=== PATIENT | female | born 2000 | race Caucasian/White ===

== ENCOUNTER 2025-03-03 22:31 | Emergency (ER) | payer BC, SELFPAY ==
--- OUTSIDE RECORDS SUMMARY | 2024-02-28 06:30 | XMS_ITS ---
Author Organization [facility] Address [address] [facility] [place] [address] Care Team Providers Care Cutting Machine Operator Name Role Phone Jen Youssef APRN Primary Care Provider Unavail able Tricia Stevens Unavailable [phone] Tevin Hermosillo Unavailable [phone] REASON FOR VISIT 2 w cysto w stent removal Encounters Encounter Location Date Provider Diagnosis Counts Include [facility] [address] [place] [address] [address] [place] [address] 02/28/2024 Tevin Hermosillo Plan Of Treatment No Information Progress Notes * Irvin HANNAHinDOB:2000 (24 yo F)Acc No.[id number]:02/28/2024 Patient: Bernarda Velasquez Provider: Veronica Hermosillo MD :2000 A ge:23 Y S ex:Female Date:02/28/2024 Address:[address], [id number] Pcp:Jen Youssef APRN Subjective: * Chief Complaints: * 2 w cysto w stent removal * Electronic signature of Nacho Hermosillo MD on 03/03/2025 at 10:38 PM CDT Sign off status: Pending * Provider: Veronica Hermosillo MD Date: Generated for Printi ng/Faxing/eTransmitting on: 10:38 PM CDT
--- OUTSIDE RECORDS SUMMARY | 2025-01-23 05:00 | XMS_ITS ---
Author Organization [facility] Address [address] [place] [address] Care Team Providers Care Hide Shaker Name Role Phone Jen Youssef APRN Primary Care Provider Unavail Tricia Meade Unavailable [phone] REASON FOR VISIT 6m f/u w kub, ua and pvr Encounters Encounter Location Date Provider Diagnosis [facility] [address] [place] [address] [address] [place] [address] 01/23/2025 Tricia Stevens Plan Of Treatment No Information Progress Notes * Irvin HANNAHinDOB:2000 (24 yo F)Acc No.[id number]:01/23/2025 Progress Notes Patient: Bernarda Velasquez Provider: STEWART Dias :2000 A ge:24 Y S ex:Female Date:01/23/2025 Address:[facility] [address], [id number] Pcp:Jen Youssef APRN Subjective: * Chief Complaints: * 6 m f/u w kub, ua and pvr Billing Information: * Procedure Codes: * Electronic signature of STEWART Bowers on 03/03/2025 at 10:38 PM CDT Sign off status: Pending * Provider: STEWART Dias Date: 0 01/23/2025 Generated for Joey rueda/Nhung/eTransmitting on: 1 10:38 PM CDT
--- OUTSIDE RECORDS SUMMARY | 2025-02-25 06:20 | XMS_ITS ---
Author Organization [facility] Address [address] [place] [address] Care Team Providers Care Supervisor Dried Yeast Name Role Phone Jen Youssef APRN Primary Care Provider Unavail able Tricia Stevens Unavailable [phone] REASON FOR VISIT 6m f/u w kub, ua and pvr Problems Problem Type SNOMED Code ICD Code Onset Dates Problem Status W/U Status Risk Notes Problem Calculus of ureter (65324129) Calculus of ureter (N20.1) Active confirmed Problem Evaluation of test results (procedure) (121226974) Encounter to discuss test results (Z71.2) Active confirmed Encounters Encounter Location Date Provider Diagnosis [facility] [address] [place] [address] [address] [place] [address] 02/25/2025 Tricia Stevens Plan Of Treatment No Information Progress Notes * Irvin HANNAHinDOB:2000 (24 yo F)Acc No.[id number]:02/25/2025 Progress Notes Patient: Bernarda Velasquez Provider: STEWART Dias :2000 A ge:24 Y S ex:Female Date:02/25/2025 Address:[address] [id number] Pcp:Jen Youssef APRN Subjective: * Chief Complaints: * 6 m f/u w kub, ua and pvr Billing Information: * Procedure Codes: * Electronic signature of STEWART Bowers on 03/03/2025 at 10:38 PM CDT Sign off status: Pending * Provider: STEWART Dias Date: 1 Generated for Joey rueda/Jorge Luis on: 1 10:38 PM CDT
[2025-03-03 22:36] VITALS: BP 124/78; PULSE 75; RESP 14; TEMP 36.6; O2SAT 100; BMI 23.3
--- OUTSIDE RECORDS SUMMARY | 2025-03-03 22:38 | XMS_ITS | Patient Health Record ---
Author Organization [facility] Address [address] [id number] Care Team Providers Care Clock And Watch Hands Dipper Name Role Phone Zeeshan Simmons Primary Care Provider [phone] Reason For Referral No Information Medications Medication SIG (Take, Route, Fr equency, Duration) Notes Start Date End Date Status Amitriptyline HCl 25 MG 1 tablet at bedt kinga Orally Once a day; Duration: 30 day(s) 10/03/2020 Active Social History Tobacco Use: Social History Observation Description Date Details (start date - stop date) Never Smoker NA - NA Sex Assigned At : Social History Observation Description Sex Assigned At Female - Question Answer Notes Did you have a drink containing alcohol in the p ast year? Yes How often did you have a dri nk containing alcohol in the past year? Never (0 points) How often did you have six o r more drinks on one occasion in the past year? Never (0 points) Points 0 Interpretation Negative OSORIO Drug Questionnaire Question Answer Notes Have you used drugs other th an those for medical reasons in the past 12 months? No Do you smoke for age 13 and up Question Answer Notes Are you a: never smoker Smokeless Tobacco Question Answer Notes Tobacco use other than smoking No Have you ever had an STD Question Answer Notes Have you ever had an STD No Prevention Strategies Discussed Other Diabetic Retinal Eye Exam Question Answer Notes Date of exam 08/02/2019 Problems Problem Type SNOMED Code ICD Code Onset Dates Problem Status W/U Status Risk Notes Problem migraine (disorder) (78051811) Migraines (G43.909) Active confirmed Plan Of Treatment No Information Insurance Providers Payer Name Payer Address Payer Phone Subscriber Number Group Number Insured Name Patient Relationship to Insured Coverage Start Date Coverage End Date [facility] [address] [place] [address] [id number] Bernarda Smith Self - patient is the insured Medications Administered Medication Instructions Date of Administration Dosage Notes Lidocaine 1% with Epinephrine 03/03/2020 2 mL Medical (General) History Surgical History Surgery Date(Month/Year)
--- OUTSIDE RECORDS SUMMARY | 2025-03-03 22:38 | XMS_ITS | Patient Health Record ---
Author Organization [facility] Address [address] [facility] [address] Care Team Providers Care Manager Scientific Name Role Phone Jen Youssef APRN Primary Care Provider Unavail able Tricia Stevens Unavailable Tevin Hermosillo Unavailable [phone] Allergies Allergen (clinical drug ingredient) Drug/Non Drug Allergy documented on EMR Reaction Allergy Type Onset Date Status sumatriptan Sumatriptan shortness of breath Drug Allergy Active Results Component Value Reference Range Notes Litholink--NO CPT Reviewed date:03/17/2024 07:01:26 PM Interpretation: Performing Lab: Notes/Report: Litholink Sent to Ref Lab PTH Intact 82507 Reviewed date:03/17/2024 07:01:47 PM Interpretation: Performing Lab: Notes/Report: Diagnosis Description: Calculus of kidney PTH Intact 77.5 18.4-88.0 pg/mL Performed on the Siemens Atellica Solution IM Abdomen AP-[id number] Reviewed date:02/21/2025 05:35:58 PM Interpretation: Performing Lab: Notes/Report: See Below For Report Abdomen AP Diagnosis Description: Calculus of kidney Read See Below For Report Abdomen AP-[id number] Reviewed date:02/21/2025 05:49:01 PM Interpretation: Performing Lab: Notes/Report: [id number]=iSite UA Without Micro-[place], [place] - [address] Reviewed date:07/19/2024 10:02:21 AM Interpretation: Performing Lab: Notes/Report: Glucose 0 Bili 0 Ketones 0 Sp [place] 1.025 Blood 1+ pH 6.0 Protein 0 Urobili 0 Nitrites 0 Leukocytes 1+ Abdomen AP-41558 Reviewed date:07/13/2024 09:43:50 AM Interpretation: Performing Lab: Notes/Report: See Below For Report Abdomen AP Diagnosis Description: Calculus of kidney Read See Below For Report PTH Intact 65392 Reviewed date:07/22/2024 07:47:47 AM Interpretation: Performing Lab: Notes/Report: Diagnosis Description: Calculus of kidney PTH Intact 37.6 18.4-88.0 pg/mL Performed on the Photos to Photos Solution IM US Renal w/bladder-39766 Reviewed date:03/12/2024 04:24:01 PM Interpretation: Performing Lab: Notes/Report: hxi=[id number]=iSite US Renal w/bladder-93990 Reviewed date:03/16/2024 09:19:57 PM Interpretation: Performing Lab: Notes/Report: See Below For Report US Renal w/bladder Read See Below For Report UA Without Micro-Auto, [place] - [address] Reviewed date:04/18/2024 03:25:30 PM Interpretation: Performing Lab: Notes/Report: Glucose 0 Bili 0 Ketones 0 Sp [place] 1.015 Blood 0 pH 0 Protein 0 Urobili 0 Nitrites 0 Leukocytes 0 Abdomen AP-51223 Reviewed date:07/13/2024 09:44:26 AM Interpretation: Performing Lab: Notes/Report: uwv=[id number]=iSite Reason For Referral No Information Medications Medication SIG (Take, Route, Frequency, Duration) Notes Start Date End Date Status Prazosin HCl 1 MG Capsule Take 1-2 capsules by mouth at night as needed for nightmares Oral; Duration: 30 Days Active {21 (Ethinyl Estradiol 0.035 MG / norgestimate 0.25 MG Oral Tablet) / 7 (Inert Ingredients 1 MG Oral Tablet) } Pack [Sprintec 28 Day] {21 (Ethinyl Estradiol 0.035 MG / norgestimate 0.25 MG Oral Tablet) / 7 (Inert Ingredients 1 MG Oral Tablet) } Pack [Sprintec 28 Day] 08/25/2015 Not-Taking lamoTRIgine 25 MG Tablet TAKE 1 TABLET EVERY DAY FOR 7 DAYS; THEN TAKE 1 TABLET TWICE DAILY FOR 7 DAYS; THEN TAKE 2 TABLETS TWICE DAILY FOR 7 DAYS Oral; Duration: 21 Days Active Amitriptyline HCl No t-Taking Amoxicillin 500 MG Capsule 1 capsule Orally 4 times daily; Duration: 7 days Not-Taking Immunizations Vaccine Route Administration Date Status Comme nts DTaP-Hib Unknown 1999 Administered DTaP-Hib Unknown 1999 Administered DTaP-Hib Unknown 1999 Administered DTaP-Hib Unknown 07/29/2000 Administered DTaP-Hib Unknown 06/11/2003 Administered Hep B, adolescent or pediatr ic (11-19), 3 dose schedule Unknown 1999 Administered Hep B, adolescent or pediatr ic (11-19), 3 dose schedule Unknown 1999 Administered Hep B, adolescent or pediatr ic (11-19), 3 dose schedule Unknown 1999 Administered Hib (PRP-T), 4 dose schedule , ActHIB Unknown 1999 Administered Hib (PRP-T), 4 dose schedule , ActHIB Unknown 1999 Administered Hib (PRP-T), 4 dose schedule , ActHIB Unknown 1999 Administered Hib (PRP-T), 4 dose schedule , ActHIB Unknown 05/26/2000 Administered Influenza (split), seasonal, intradermal, preservative free Unknown 02/19/2019 Administered IPV Unknown 1999 Administered IPV Unknown 1999 Administered IPV Unknown 07/29/2000 Administered IPV Unknown 06/11/2003 Administered MMR Unknown 05/26/2000 Administered MMR Unknown 06/11/2003 Administered Tdap Unknown 11/15/2011 Administered Varicella (Varicella-Zoster/ Chicken Pox) Unknown 05/26/2000 Administered Varicella (Varicella-Zoster/ Chicken Pox) Unknown 12/20/2013 Administered Social History Tobacco Use: Social History Observation Description Date Details (start date - stop date) Former Smoker NA - NA Social History Depression Screening Social Info Question Answer Notes PHQ-9 Little interest or pleasure in doing thin gs Several days Feeling down, depressed, or hopeless Several day s Trouble falling or staying a sleep, or sleeping too much Several days Feeling tired or having little energy Several da ys Poor appetite or overeating Not at all Feeling bad about yourself, or that you are a failure, or have let yourself or your family down Several days Trouble concentrating on thi ngs, such as reading the newspaper or watching television Several days Moving or speaking so slowly that other people could have noticed. Or the opposite ? being so fidgety or restless that you have been moving around a lot more than usual Not at all Thoughts that you would be b ramila off , or of hurting yourself in some way Several days (Consider Suicide Assessment Risk) Total Score 7 Interpretation Mild Depression Drugs/Alcohol: Social Info Question Answer Notes Alcohol Screen (Audit-C) Did you have a drink containing alcohol in the past year? No Points 0 Interpretation Negative Drugs Have you used drugs other than those for medical reasons in the past 12 months? No Tobacco Use: Social Info Question Answer Notes xTobacco Use/Smoking Are you a former smoker How long has it been since you last smoked? 1-5 years Additional Details Category Social Info Options Details zzMigrated Social History Migrated Social History Smoking Status:Never smoked tobacco (finding) Section Notes: Alcohol- only on special occasions Caffeine- very little Alcohol- only on special occasions Caffeine- very little Alcohol- only on special occasions Caffeine- very little Alcohol- only on special occasions Caffeine- very little Problems Problem Type SNOMED Code ICD Code Onset Dates Problem Status W/U Status Risk Notes Problem Calculus of ureter (83944838) Calculus of ureter (N20.1) Active confirmed Problem Primigravida (215713167) Encounter for supervision of normal first , second trimester (Z34.02) Active confirmed Problem Chronic cystitis (87114323) Chronic cystitis (N30.20) Active confirmed Problem Nephrolithiasis (97467358) Nephrolithiasis (N20.0) Active confirmed Problem Second trimester (09870889) Encounter for supervision of other normal in second trimester (Z34.82) Active confirmed Problem Laboratory test result abnormal (252815202) Abnormal laboratory test result (R89.9) Active confirmed Problem Microscopic hematuria (316713796) Microhematuria (R31.29) Active confirmed Problem History of insertion of stent into ureter (situation) (007872424) S/P ureteral stent placement (Z96.0) Active confirmed Problem Kidney stone (81610331) Kidney stone (N20.0) Active confirmed Problem Foul smelling urine (920019312) Foul smelling urine (R82.90) Active confirmed Problem Evaluation of test results (procedure) (748245214) Encounter to discuss test results (Z71.2) Active confirmed Problem Chronic cystitis (disorder) (65694333) Chronic cystitis without hematuria (N30.20) Active confirmed Problem Primigravida (063481110) Encounter for supervision of normal first in first trimester (Z34.01) Active confirmed Problem Third trimester (68491258) Encounter for supervision of other normal in third trimester (Z34.83) Active confirmed Problem Normal (31983008) Normal in first trimester (Z34.91) Active confirmed Problem Ureteral stent present (Z96.0) Active confirmed Vital Signs Heart Rate 68 /min 07/19/2024 Temperature 98.0 degrees Fahrenheit 07/19/2024 Height-cm 162.56 cm 07/19/2024 Blood pressure diastolic 74 mm Hg 07/19/2024 Weight-kg 61.42 kg 07/19/2024 Height 64 in 07/19/2024 Blood pressure systolic 102 mm Hg 07/19/2024 Weight 135.4 lbs 07/19/2024 BMI 23.24 kg/m2 07/19/2024 Procedures Procedure Date Ordered Date Performed Result Body Sit e PVR (Post Void Residual) 07/19/2024 07/19/2024 N/A Encounters Encounter Location Date Provider Diagnosis [facility] [address] [place] [address] 03/12/2024 [facility] [address] [place] [address] [place] [address] 04/18/2024 Tricia Stevens Chronic cystitis without hematuria N30.20 ; Nephrolithiasis N20.0 and Foul smelling urine R82.90 [facility] [address] [place] [address] [place] [address] 07/19/2024 Tricia Stevens Kidney stone N20.0 ; Chronic cystitis without hematuria N30.20 and Microhematuria R31.29 [facility] [address] [place] [address] [place] [address] 03/08/2024 [facility] [address] [place] [address] 04/17/2024 [facility] [address] [place] [address] [place] [address] 04/18/2024 Tevin Hermosillo Kidney stone N20.0 [facility] [address] [place] [address] 04/18/2024 Tricia Stevens [facility] [address] [place] [address] 04/23/2024 Tevin Hermosillo [facility] [address] [place] [address] 04/24/2024 Tevin [facility] [address] [place] [address] 07/19/2024 Tevin Hermosillo Kidney stone N20.0 [facility] [address] [place] [address] 10/16/2024 Tevin Hremosillo [facility] [address] [place] [address] 01/22/2025 Tevin Hermosillo Assessments Encounter Date Diagnosis (ICD Code) Assessment Notes Treatment Notes Treatment Clinical Notes Section Notes 07/19/2024 Kidney stone (ICD-10 - N20.0) 04/18/2024 Chronic cystitis without hematuria (ICD-10 - N30.20) 07/19/2024 Kidney stone (ICD-10 - N20.0) PLAN - PATIENT TO HAVE KUB, CBC, CMP, UA AND FOLLOW UP WITH PROVIDER IN 6 MONTHS. IF YOU HAVE CHILLS, FEVER, FLANK PAIN, BLOOD IN URINE, NAUSEA, VOMITING, PLEASE SEEK EMERGENT CARE. 07/19/2024 Chronic cystitis without hematuria (ICD-10 - N30.20) PLAN - PATIENT WILL CONTACT OFFICE AND ARRANGE FOR NURSE VISIT IF SHE BELIEVE SHE IS ACQUIRING A UTI, WE CAN OBTAIN A SAMPLE AND PROVIDE HER WITH TREATMENT. 04/18/2024 Kidney stone (ICD-10 - N20.0) 04/18/2024 Nephrolithiasis (ICD-10 - N20.0) 04/18/2024 Foul smelling urine (ICD-10 - R82.90) 07/19/2024 Microhematuria (ICD-10 - R31.29) Patient will notify office if she has any ligia bleeding 07/19/2024 Other PATIENT TO FOLLOW UP IN 6 MONTHS WITH KUB, UA, PVR Plan Of Treatment Pending Test Test Name Order Date Basic Metabolic Panel (BMP) 01223 2023 Comprehensive Metabolic Panel (CMP) 8005 3 07/07/2022 Hemoglobin 47003 07/09/2022 Uric Acid (U) 24 hr 90666 02/22/2024 CBC Reflex Man Diff 83417, 32478 023 PTH Intact 08881 04/18/2024 PTH Intact 49394 02/22/2024 GTT 3 H--45646 05/13/2022 Insurance Providers Payer Name Payer Address Payer Phone Subscriber Number Group Number Insured Name Patient Relationship to Insured Coverage Start Date Coverage End Date [employer] [address] [place] [address] [id number] Bernarda Weiss Self - patient is the insured Medical (General) History Medical History History ICD Code Problem:Pain in elbow (finding) , Status :: Active Problem:Patient encounter status (leslie anderson) , Status :: Active kidney stones migraine headaches Surgical History Surgery Date(Month/Year) Ureteral stent placement Gallbladder 02/2023 wisdom teeth Stone Manipulation Hospitalization History Reason Date(Month/Year) see surgical history
--- OUTSIDE RECORDS SUMMARY | 2025-03-03 22:38 | XMS_ITS | Data Portability ---
Author Organization [facility], [facility] Address [address] [place] [address] Assessment No assessment recorded. Plan of Treatment Reminders Order Date Submit Date Provider Last Modified By Organization Details Last Modified Time Details Appointments None recorded. Lab None recorded. Referral None recorded. Procedures None recorded. Surgeries None recorded. Imaging None recorded. Medication Orders paroxetine 30 mg tablet 2023 024 [facility], [address] [place], [address], 4 16:48:06 trazodone 50 mg tablet 2023 024 [facility], [address] [place], [address], 4 16:48:05 paroxetine 20 mg tablet 2023 024 [facility], [address] [place], [address], 4 16:55:30 trazodone 50 mg tablet 2023 024 [facility], [address] [place], [address], 4 16:55:29 Patient TargetsNo targets recorded. Patient InstructionsNo instructions recorded. Reason for Referral None Reported. Procedures Surgical History Date Name Laterality Status Provider Name and Address Organization Details Recorded Time 3 procedure on gallbladder completed Lisseth Pelaez 07/27/2023 15:31:07 Imaging Results None recorded. Procedure Notes None recorded. Medical Equipment None Reported. Allergies Allergen ID Allergen Name Allergen Category Reaction Reaction Severity Criticality Documentation Date Start Date Code Code System Note Provider Name and Address Organization Details Recorded Time sumatript an medicatio n Not available Not available Not available 07/27/2023 46657 RxNorm Lisseth mccullough [facility] serrato Pierce Rosalesner 4 15:26:15 Medications Name Sig Start Date Stop Date Status Note LastModified by Organization Details LastModified Time paroxetine 10 mg tablet TAKE 1 TABLET BY MOUTH DAILY active Not Available Not Available No t Available trazodone 50 mg tablet Take 2 tablets every day by oral route at bedtime for 30 days. active Not Available Not Available No t Available fluconazole 150 mg tablet Take 1 tablet by mouth daily if develops yeast infection active Not Available Not Available No t Available prazosin 1 mg capsule Take 1-2 capsules by mouth at night as needed for nightmare s active Not Available Not Available No t Available sucralfate 1 gram tablet TAKE 1 TABLET BY MOUTH BEFORE MEALS AND AT bedtime 07/26 completed Not Available Not Available Not Available sertraline 100 mg tablet Take 1 tablet by mouth once a day. 07/26 completed Not Available Not Available Not Available clindamycin HCl 150 mg capsule Take 1 capsule by mouth four times a day x 10 days 07/26 completed Not Available Not Available Not Available metronidazo le 500 mg tablet TAKE 1 TABLET BY MOUTH TWICE DAILY active Not Available Not Available No t Available ciprofloxac in 500 mg tablet TAKE 1 TABLET BY MOUTH TWICE DAILY FOR THREE DAYS active Not Available Not Available No t Available famotidine 20 mg tablet TAKE 1 TABLET BY MOUTH ONCE A DAY 07/26 completed Not Available Not Available Not Available amitriptyli ne 25 mg tablet Take 1 tablet by mouth at bedtime as needed for sleep. 07/26 completed Not Available Not Available Not Available hydrocodone 7.5 mg-acetamin ophen 325 mg tablet TAKE 1 TABLET EVERY 6 HOURS NEEDED FOR PAIN 07/26 completed Not Available Not Available Not Available paroxetine 30 mg tablet TAKE 1 TABLET BY MOUTH EVERY DAY active Not Available Not Available No t Available paroxetine 20 mg tablet Take 1 tablet every day by oral route for 30 days. active Not Available Not Available No t Available hydroxyzine HCl 25 mg tablet TAKE 1/2-2 tablets BY MOUTH AT bedtime as needed FOR SLEEP 07/26 completed Not Available Not Available Not Available cefuroxime axetil 500 mg tablet TAKE 1 TABLET TWICE DAILY 07/26 completed Not Available Not Available Not Available methylpredn isolone 4 mg tablets in a dose pack Take all of each days pills by mouth with breakfast . 07/26 completed Not Available Not Available Not Available norethindro ne (contracept vasiliy) 0.35 mg tablet TAKE 1 TABLET EVERY DAY 07/26 completed Not Available Not Available Not Available cefdinir 300 mg capsule TAKE 1 CAPSULE EVERY 12 HOURS active Not Available Not Available No t Available sertraline 50 mg tablet TAKE 1 TABLET BY MOUTH ONCE A DAY 07/26 completed Not Available Not Available Not Available aripiprazol e 2 mg tablet TAKE 1 TABLET BY MOUTH ONCE A DAY 07/26 completed Not Available Not Available Not Available Lo Loestrin Fe 1 mg-10 mcg (24)/10 mcg (2) tablet TAKE 1 TABLET BY MOUTH EVERY DAY 07/26 completed Not Available Not Available Not Available Zafemy 150 mcg-35 mcg/24 hr transdermal patch Apply 1 PATCH ONCE WEEKLY FOR THREE WEEKS 07/26 completed Not Available Not Available Not Available Vitals Date Recorded Body weight Body mass index (BMI) Body height Body temperature Heart rate Oxygen saturation Oxygen saturation in Arterial blood by Pulse oximetry Systolic And Diastolic Provider Name and Address Organization Details Last Updated DateTime 4 73772.0 7 g 30.8 kg/m2 160.02 cm 97.3 [degF] 85 /min 99 % 99 % 110/74 mm[Hg] Lisseth Pelaez 4 15:33:46 Date Recorded Body height Body mass index (BMI) Body weight Body temperature Heart rate Oxygen saturation Oxygen saturation in Arterial blood by Pulse oximetry Systolic And Diastolic Provider Name and Address Organization Details Last Updated DateTime 4 160.02 cm 29.4 kg/m2 93536.3 3 g 96.9 [degF] 66 /min 98 % 98 % 101/71 mm[Hg] Kira Pelaez 4 10:32:57 Social History Question Answer Notes LastModified by Organizat ion Details LastModified Time Tobacco Smoking Status Never Smoker Kira Peewee serrato, [facility] [place] Rosalesner 08/24/2023 10:32:26 What Was The Date Of Your Most Recent Tobacco Screening? 08/24/2023 Information not available 08/24/2023 Sex: Unknown Functional Status Question Answer Note LastModified by Organizat ion Details LastModified Time Do you use any illicit or recreational drugs? No Information not available 08/24/2023 Do you or have you ever used any other forms of tobacco or nicotine? No Information not available 08/24/2023 Mental Status None recorded. Family History Relationship Description Onset Age of this Age Resolved Age Notes LastModified by Organization Details LastModified Time Father No current problems or disability [email or web address] Not available 07/26 15:30:01 Mother No current problems or disability [email or web address] Not available 07/26 15:30:01 Medical History No medical history recorded. Gynecological HistoryNo gynecological history recorded. Obstetrics History GPAL:G 0 P 0 0 0 0 Past Encounters Encounter ID Performer Location Encounter Start Date Encounter Closed Date Diagnosis/Indication Diagnosis SNOMED-CT Code Diagnosis ICD10 Code Diagnosis IMO Codes Diagnosis Note [id number] [facility] [address] [place] [phone] 07/27/2023 15:19:13 07/27/2023 15:58:11 Bipolar disorder 04616845 F31.9 begin using as directed, f/u in one month [id number] [facility] [address] [place] [phone] 1 08/24/2023 10:12:14 08/25/2023 15:11:44 Bipolar disorder 92794921 F31.9 will increase to paxil 30. Insomnia 627605165 G47.0 0 use as directed Health Concerns Section Related Observation LastModified by Organization Detai ls LastModified Time None Recorded Concern Status LastModified by Organization Details LastModified Time None Recorded Advance Directives Directive None Recorded Payers Insurance Date Sequence Insurance Name Policy Number Policy Guerra Covered Member ID Guerra Member ID Guarantor Name 11/20/2023 1 [employer] [address] [place] [address] Bernarda Smith [id number] Bernarda Smith Notes Date Note Type Note Provider Name and Address Organization Details Recorded Time 07/27/2023 text/html Anxiety/Depressi onRepor rowan by PatientHPIFor associated symptoms, patient reportsanxiety,hypersen sitivity,depression,ins omnia,restlessness/agit ation,despair/hopelessn ess,social withdrawal, anddecreased effectiveness/productiv itybut reportsdenies homicidal ideations,no significant weight gain,no significant weight loss,no visual/auditory hallucinations,no delusions,no shortness of breath,mood good,no crying spells,no panic,no isolation,appetite good,no apathy, andmaintaining functionality. For severity, patient reportsdenies suicidal ideations,able to maintain relationships, anddoes not interfere with activities of daily living. For context, patient reportsno major life stressors. For modifying factors, patient reportsmedications as directed. new pt. pt states she stopped taking her depression/anxiety medication in may and she would like to try something different.pt has taken zoloft, amitripyline, abilify and hydroxyzine 25.pt states she was dx with bipolar disorder three years ago.no motivation, anxiety and melancholy CRISTINE Armenta [address] [place], [address], [place] - Pierce Pelaez 07/27/2023 15:52:56 08/24/2023 text/html Anxiety/Depressi onRepor rowan by PatientHPIFor associated symptoms, patient reportsanxiety,hypersen sitivity,depression,ins omnia,restlessness/agit ation,despair/hopelessn ess,social withdrawal, anddecreased effectiveness/productiv itybut reportsdenies homicidal ideations,no significant weight gain,no significant weight loss,no visual/auditory hallucinations,no delusions,no shortness of breath,mood good,no crying spells,no panic,no isolation,appetite good,no apathy, andmaintaining functionality. For severity, patient reportsdenies suicidal ideations,able to maintain relationships, anddoes not interfere with activities of daily living. For context, patient reportsno major life stressors. For modifying factors, patient reportsmedications as directed. Patient is here for a one month check up. Patient states that the medication is helping some but not enough. DARWIN ArmentaUP [address] [place], [address], [facility]z 08/24/2023 10:55:22 OBGyn Episode No OBEpisode recorded.
--- OUTSIDE RECORDS SUMMARY | 2025-03-03 22:38 | XMS_ITS | Patient Health Record ---
Author Organization [place] [facility], [facility] Address [address] [facility] [place] [address] Care Team Providers Care Family Medicine Chair Name Role Phone MikaelJen garrett Primary Care Provider Unavailabl e Allergies No Known Allergies Reason For Referral No Information Medications Medication SIG (Take, Route, Frequency, Duration) Notes Start Date End Date Status Pepcid 20 MG 1 tablet Orally Twice per day; Duration: 30 day(s) Active Amoxicillin 500 MG 1 capsule Orally 4 times daily; Duration: 7 days Not-Taking PNV *Reorder from [facility] for eRx and Interaction Alerts* Active {21 (Ethinyl Estradiol 0.035 MG / norgestimate 0.25 MG Oral Tablet) / 7 (Inert Ingredients 1 MG Oral Tablet) } Pack [Sprintec 28 Day] {21 (Ethinyl Estradiol 0.035 MG / norgestimate 0.25 MG Oral Tablet) / 7 (Inert Ingredients 1 MG Oral Tablet) } Pack [Sprintec 28 Day] *Reorder from [facility] for eRx and Interaction Alerts* 08/25/2015 Not-Taking Amitriptyline HCl *Pick strength-form from [facility] for eRX* Not-Taking Immunizations Vaccine Route Administration Date Status Comme nts DTaP-Hib Unknown 1999 Administered DTaP-Hib Unknown 1999 Administered DTaP-Hib Unknown 1999 Administered DTaP-Hib Unknown 07/29/2000 Administered DTaP-Hib Unknown 06/11/2003 Administered Hep B, adolescent or pediatric (11-19), 3 dose schedule Unknown 1999 Administered Hep B, adolescent or pediatric (11-19), 3 dose schedule Unknown 1999 Administered Hep B, adolescent or pediatric (11-19), 3 dose schedule Unknown 1999 Administered Hib (PRP-T), 4 dose schedule Unknown 1999 Administered Hib (PRP-T), 4 dose schedule Unknown 1999 Administered Hib (PRP-T), 4 dose schedule Unknown 1999 Administered Hib (PRP-T), 4 dose schedule Unknown 05/26/2000 Administered Influenza (split), seasonal, intradermal, preservative free Unknown 02/19/2019 Administered Immunization G iven by from source eCW:: IPV Unknown 1999 Administered IPV Unknown 1999 Administered IPV Unknown 07/29/2000 Administered IPV Unknown 06/11/2003 Administered MMR Unknown 05/26/2000 Administered MMR Unknown 06/11/2003 Administered Tdap Unknown 11/15/2011 Administered Varicella (Varicella-Zoster/Chic margy Pox Unknown 05/26/2000 Administered Varicella (Varicella-Zoster/Chic margy Pox Unknown 12/20/2013 Administered Problems Problem Type SNOMED Code ICD Code Onset Dates Problem Status W/U Status Risk Notes Problem Primigravida (676738143) Encounter for supervision of normal first , second trimester (Z34.02) Active confirmed Problem Normal (58747648) Normal in first trimester (Z34.91) Active confirmed Problem Second trimester (33242594) Encounter for supervision of other normal in second trimester (Z34.82) Active confirmed Problem Primigravida (980012206) Encounter for supervision of normal first in first trimester (Z34.01) Active confirmed Problem Laboratory test result abnormal (295115816) Abnormal laboratory test result (R89.9) Active confirmed Problem Third trimester (61664593) Encounter for supervision of other normal in third trimester (Z34.83) Active confirmed Problem Kidney stone (99106031) Kidney stone (N20.0) Active confirmed Plan Of Treatment Pending Test Test Name Order Date Comprehensive Metabolic Panel 19555 0 05/2022 Hemoglobin 49177 07/09/2022 CBC Reflex Man Diff 44782, 05130 023 GTT 3 H--01091 05/13/2022 Insurance Providers Payer Name Payer Address Payer Phone Subscriber Number Group Number Insured Name Patient Relationship to Insured Coverage Start Date Coverage End Date [employer] [address] [place], [place] [id number] Bernarda Weiss Self - patient is the insured Medical (General) History Medical History History ICD Code Problem:Pain in elbow (finding) , Status :: Active Problem:Patient encounter status (leslie anderson) , Status :: Active kidney stones migraine headaches Surgical History Surgery Date(Month/Year) wisdom teeth Hospitalization History Reason Date(Month/Year) see surgical history
[2025-03-03 22:43] VITALS: BP 123/83; PULSE 74; O2SAT 100
[2025-03-03 23:50] LABS: Hematocrit 37.4 % (36-47); Hemoglobin 12.30 g/dL (11.27-16.99); Mean Corpuscular HGB Conc 32.9 g/dL (30-55); Mean Corpuscular Hemoglobin 29.9 pg (27-33); Mean Corpuscular Volume 91.0 fl (85-98); Nucleated Red Blood Cells % 0 %; Platelet Count 227 10^3/cmm (157-399); Red Blood Count 4.11 10^6/uL (3.85-5.65); White Blood Count 8.75 10^3/uL (3.29-11.43)
[2025-03-04 00:05] LABS: HCG, Serum Qual Negative (Negative)
[2025-03-04 00:11] LABS: Alanine Aminotransferase 7 U/L (0-33); Albumin Level 4.4 g/dL (3.5-5.2); Alkaline Phosphatase 58 U/L (35-105); Anion Gap 14.9 (5-19); Aspartate Amino Transferase 11 U/L (0-32); Blood Urea Nitrogen 12 mg/dL (6-20); Calcium 9.1 mg/dL (8.5-10.5); Carbon Dioxide 24 mmol/L (22-29); Chloride 101 mmol/L (98-107); Creatinine Clr Calc Pharmacy 130.0971; Globulin 2.6 g/dL (1.3-4.6); Glucose 84 mg/dL (65-115); Lipase 27 U/L (13-60); Osmolality Calculated 281 mOsm/kg (285-295); Potassium 3.9 mmol/L (3.5-5.1); Sodium 136 mmol/L (136-145); Total Protein 7.0 g/dL (6.6-8.7)
--- NOTE | 2025-03-04 00:17 | ED_ITS ---
HPI - Abdominal Pain 2 General: Chief Complaint: Abdominal Pain Stated Complaint: Severe abd pain Time Seen by Provider: 03/03/25 23:59 History of Present Illness: Patient is a 24-year-old female who presents with abdominal pain that began today at approximately 4:00 PM. She describes the pain as located in the middle of her umbilicus extending to her right flank. The patient reports associated nausea but denies vomiting, fever, or diarrhea. She also denies significant dysuria. The patient states that the pain feels similar to a previous kidney blockage she experienced in the past. She has not taken any medications for symptom relief prior to presentation. Of note, patient has a history of cholecystectomy and is confirmed not to be . Related Data Date of Last Menstrual Period: 01/22/25 Previous Rx's ?Medication ?Instructions ?Recorded cefdinir 300 mg capsule 300 mg PO BID #14 caps 03/04 hydrocodone 5 mg-acetaminophen 325 1 tab PO Q8H PRN pa in #7 tabs 03/04/25 mg tablet ondansetron 4 mg disintegrating 4 mg PO Q6H PRN nausea and 03/04/25 tablet vomiting #14 tabs Allergies Allergy/AdvReac Type Severity Reaction Status Date / Time sumatriptan Allergy ALGY-Anaphy Verified 03/03/25 22:41 laxis Review of Systems 2 Narrative: Constitutional: Denies fever Gastrointestinal: Reports abdominal pain and nausea. Denies vomiting and diarrhea Genitourinary: Denies significant dysuria. Denies vaginal bleeding or discharge All other systems: Not assessed or documented in this encounter [facility] ED 2 Female Reproductive History: Date of last menstrual period: 01/22/25 Physical Exam 2 Const: COMMON NORMALS: no acute distress GENERAL APPEARANCE: cooperative; not frail appearing HENMT: COMMON NORMALS: normocephalic, atraumatic and Normal external nose present HEAD & SCALP: normocephalic and atraumatic FACE & SINUS: normal facial exam and face symmetric NOSE: Normal external nose present Eye: COMMON NORMALS: Equal, round and reactive pupils present and EOMs intact bilaterally PUPIL: Yes Equal, round and reactive pupils present Neck/C-Spine: GENERAL: Yes trachea midline Chest: CHEST: Yes Symmetrical chest wall rise Resp: COMMON NORMALS: normal respiratory effort, No retractions, No use of accessory muscles and clear to auscultation bilaterally AUSCULTATION: clear to auscultation bilaterally Cardio: COMMON NORMALS: regular rate and regular rhythm RATE: regular rate RHYTHM: regular rhythm GI: COMMON NORMALS: Normal to inspection, nondistended, normoactive bowel sounds present PALPATION: Yes Tenderness to palpation present (GI) Details: RLQ : BLADDER/KIDNEY EXAM: Yes CVA tenderness on the right Back/Pelvis: GENERAL BACK: Yes CVA tenderness Extremity: COMMON NORMALS: no pedal edema Neuro: JUDY COMA SCALE: document GCS findings [place] coma scale eye opening: Spontaneous [place] coma scale verbal response: Orientated [place] coma scale motor response: Obey commands [place] coma scale total score: 15 S ENSORY EXAM: Yes extremities (intact) Psych: COMMON NORMALS: speech normal SPEECH: Yes normal speech Skin: COMMON NORMALS: no rashes or lesions noted GENERAL SKIN EXAM: no rashes or lesions noted Course 2 Vital Signs: Vital signs: Vital Signs Temperature 97.8 F 03/03/25 22:36 Pulse Rate 74 03/04/25 00:38 Respiratory Rate 18 03/04/25 00:36 Blood Pressure 117/77 03/04/25 01:22 Pulse Oximetry 100 03/04/25 01:22 Oxygen Delivery Me thod Room Air 03/04/25 01:22 MDM - Abdominal Pain Medical Decision Making Right flank pain in a 24-year-old female. Vitals are normal. She is afebrile. CBC is normal. BMP is normal. She does have a nitrate +1+ leukocyte esterase 21-50 white blood cell count urine with 3+ bacteria. CT reveals perinephric edema on the right likely related to pyelonephritis. She does not have an obstructing stone. She does have some constipation. She will be treated with antibiotics. She got IV Rocephin and fluid here. Symptomatic treatment otherwise. Return for worsening symptoms despite treatment. Stable for discharge. Lab Data 03/03/25 23:44 03/03/25 23:44 Labs/Radiology: Radiology Impressions Abdomen/Pelvis CT 03/04/25 00:21 IMPRESSION: 1. Minimal right perinephric edema, please correlate for pyelonephritis. 2. Spleen enlarged at 13 cm. 3. Right kidney punctate nonobstructing renal caliceal stone. 4. 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 5. Cholecystectomy. 6. Moderate constipation. 7. Prominent fluid in the small bowel without dilation may reflect an enteritis. 8. Ray adnexal 3 cm cyst suspected, likely follicular. Laboratory Results WBC 8.75 10^3/uL (3.29-11.43) 03/03/25 23:44 RBC 4.11 10^6/uL (3.85-5.65) 03/03/25 23:44 Hgb 12.30 g/dL (11.27-16.99) 03/03/25 23:44 Hct 37.4 % (36-47) 03/03/25 23:44 MCV 91.0 fl (85-98) 03/03/25 23:44 MCH 29.9 pg (27-33) 03/03/25 23:44 MCHC 32.9 g/dL (30-55) 03/03/25 23:44 RDW 12.2 % (12.1-15.1) 03/03/25 23:44 Plt Count 227 10^3/cmm (157-399) 03/03/25 23:44 MPV 9.1 fL (7.4-10.4) 03/03/25 23:44 Neut % (Auto) 62.3 % 03/03/25 23:44 Lymph % (Auto) 30.6 % 03/03/25 23:44 Wilbarger % (Auto) 5.0 % 03/03/25 23:44 Eos % (Auto) 1.4 % 03/03/25 23:44 Baso % (Auto) 0.5 % 03/03/25 23:44 Neut # (Auto) 5.45 10^3/uL (1.8-7.7) 03/03/25 23:44 Lymph # (Auto) 2.7 10^3/uL (0.8-4.8) 03/03/25 23:44 Wilbarger # (Auto) 0.4 10^3/uL (0.2-0.9) 03/03/25 23:44 Eos # (Auto) 0.1 10^3/uL (0.0-0.8) 03/03/25 23:44 Baso # (Auto) 0.0 10^3/uL (0.0-0.1) 03/03/25 23:44 Nucleated RBC % (auto) 0 % 03/03/25 23:44 Nucleated RBCs # 0.0 /100WBC 03/03/25 23:44 Sodium 136 mmol/L (136-145) 03/03/25 23:44 Potassium 3.9 mmol/L (3.5-5.1) 03/03/25 23:44 Chloride 101 mmol/L (98-107) 03/03/25 23:44 Carbon Dioxide 24 mmol/L (22-29) 03/03/25 23:44 Anion Gap 14.9 (5-19) 03/03/25 23:44 BUN 12 mg/dL (6-20) 03/03/25 23:44 Creatinine 0.6 mg/dL (0.5-0.9) 03/03/25 23:44 GFR Calculation 121.8 mL/min (90-130) 03/03/25 23:44 Glucose 84 mg/dL (65-115) 03/03/25 23:44 Calculated Osmolality 281 mOsm/kg (285-295) L 03/03/25 23:44 Calcium 9.1 mg/dL (8.5-10.5) 03/03/25 23:44 Total Bilirubin 0.3 mg/dL (0.15-1.2) 03/03/25 23:44 AST 11 U/L (0-32) 03/03/25 23:44 ALT 7 U/L (0-33) 03/03/25 23:44 Alkaline Phosphatase 58 U/L (35-105) 03/03/25 23:44 C-Reactive Protein 3.0 mg/L (0.0-4.9) 03/03/25 23:44 Total Protein 7.0 g/dL (6.6-8.7) 03/03/25 23:44 Albumin 4.4 g/dL (3.5-5.2) 03/03/25 23:44 Globulin 2.6 g/dL (1.3-4.6) 03/03/25 23:44 Lipase 27 U/L (13-60) 03/03/25 23:44 HCG, Qual Negative (Negative) 03/03/25 23:44 Urine Color Yellow (Yellow) 03/04/25 01:30 Urine Appearance Clear (CLEAR) 03/04/25 01:30 Urine pH 7.0 (5-7) 03/04/25 01:30 Ur Specific Stringer 1.014 (1.005-1.030) 03/04/25 01:30 Urine Protein Negative (Negative) 03/04/25 01:30 Urine Glucose (UA) Negative (Normal) 03/04/25 01:30 Urine Ketones Trace (Negative) 03/04/25 01:30 Urine Blood Negative (Negative) 03/04/25 01:30 Urine Nitrate Positive (Negative) A 03/04/25 01:30 Urine Bilirubin Negative (Negative) 03/04/25 01:30 Urine Urobilinogen 1.0 mg/dL (Negative) 03/04/25 01:30 Ur Leukocyte Esterase 1+ (Negative) A 03/04/25 01:30 Urine RBC 0-2 /hpf (0-2) 03/04/25 01:30 Urine WBC 21-50 /hpf (0-5) H 03/04/25 01:30 Ur Squamous Epith Cells 0-5 /hpf (0-5) 03/04/25 01:30 Amorphous Sediment Not Reportable 03/04/25 01:30 Urine Bacteria 3+ /hpf (NONE) H 03/04/25 01:30 Hyaline Casts 1.65 /lpf 03/04/25 01:30 All radiology interpretation(s) finalized by discharge Discharge Plan Discharge Patient Disposition: Home Clinical Impression: Pyelonephritis of right kidney Condition: Stable Prescriptions: New cefdinir 300 mg capsule 300 mg PO BID Qty: 14 0RF hydrocodone-acetaminophen 5-325 mg tablet 1 tab PO Q8H PRN (Reason: pain) Qty: 7 0RF ondansetron 4 mg tablet,disintegrating 4 mg PO Q6H PRN (Reason: nausea and vomiting) Qty: 14 0RF Discharge Orders: Discharge ED (Routine); Ordered 03/04/25 Ordered By: Prince Bone Referrals: Dian Weir FNP [Primary Care Provider] - 1-3 days Patient Instructions: Kidney Infection (ED), Opioid Safety, Pain Management, Patient Portal & Alee Instructions Activity Restrictions/Additional Instructions: Antibiotics as directed. You may take ibuprofen or other NSAIDs for pain. Use pain medication for significant pain. Return for fever despite 2-3 more doses of antibiotics, vomiting liquids or medications despite treatment, worsening pain despite treatment. Any other concerning symptoms. Follow-up with your doctor this week. Call in the morning for an appointment. Your urine will need to be retested to make sure you are clearing the infection. Print Language: Ukrainian Coding Level of Care Code ED Talent Development Specialist for Lyle Abbasi
--- NOTE | 2025-03-04 00:21 | CTR_ITS ---
PROCEDURE INFORMATION: Exam: CT Abdomen And Pelvis Without Contrast Exam date and time: 03/04/2025 12:49 AM Age: 24 years old Clinical indication: Abdominal pain; Right; Prior surgery; Surgery date: 6+ months; Surgery type: Gb; C/O RT flank pain; Additional info: R flank pain TECHNIQUE: Imaging protocol: Computed tomography of the abdomen and pelvis without contrast. Radiation optimization: All CT scans at this facility use at least one of these dose optimization techniques: automated exposure control; mA and/or kV adjustment per patient size (includes targeted exams where dose is matched to clinical indication); or iterative reconstruction. COMPARISON: No relevant prior studies available. RADIATION DOSE METRICS: Total DLP (mGy-cm): 400.4 FINDINGS: Liver: Normal. No mass. Gallbladder and biliary ducts: Cholecystectomy. Pancreas: Normal. No ductal dilation. Spleen: Spleen enlarged at 13 cm. Adrenal glands: Normal. No mass. Kidneys and ureters: Minimal right perinephric edema, please correlate for pyelonephritis. Right kidney punctate nonobstructing renal caliceal stone. 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 Stomach and bowel: Moderate constipation. Prominent fluid in the small bowel without dilation may reflect an enteritis. Appendix: No evidence of appendicitis. Intraperitoneal space: Unremarkable. No free air. No significant fluid collection. Vasculature: Unremarkable. No abdominal aortic aneurysm. Lymph nodes: Unremarkable. No enlarged lymph nodes. Urinary bladder: Unremarkable as visualized. Reproductive: Ray adnexal 3 cm cyst suspected, likely follicular. Bones/joints: See Reproductive finding. Soft tissues: Unremarkable. CT/CT kidney stone [id number] IMPRESSION: 1. Minimal right perinephric edema, please correlate for pyelonephritis. 2. Spleen enlarged at 13 cm. 3. Right kidney punctate nonobstructing renal caliceal stone. 4. 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 5. Cholecystectomy. 6. Moderate constipation. 7. Prominent fluid in the small bowel without dilation may reflect an enteritis. 8. Ray adnexal 3 cm cyst suspected, likely follicular.
[2025-03-04 00:23] VITALS: BP 125/83; PULSE 76; O2SAT 98
[2025-03-04] MEDS: ondansetron 2 mg/ML SDV 2 mL 4 MG IVP (00:34)
[2025-03-04 00:36] VITALS: RESP 18
[2025-03-04] MEDS: morphine 4 mg/mL SDV 1 mL IVP (00:36)
[2025-03-04 00:38] VITALS: BP 113/80; PULSE 74; O2SAT 100
[2025-03-04 01:22] VITALS: BP 117/77; O2SAT 100
[2025-03-04 01:38] LABS: Glucose Urine UA Negative (Normal); Nitrate Urine Positive (Negative); Specific Gravity, Urine 1.014 (1.005-1.030)
[2025-03-04 01:40] LABS: Add Urine Microscopic? YES
[2025-03-04] MEDS: cefTRIAXone 1,000 mg SDV 1000 MG IVP (02:21)
[2025-03-04 03:13] VITALS: BP 111/73; PULSE 77; RESP 14; O2SAT 99
== END 2025-03-04 03:18 | disposition home or self-care (01) ==
PROVIDERS: Emergency Provider Emergency Medicine
DX: N12 Tubulo-interstitial nephritis, not specified as acute or chronic (principal)
CPT/HCPCS: 36415; 74176; 80053; 81001; 83690; 84703; 85025; 86140; 87077; 87086; 87186; 96361; 96374; 96375; 99285; J0696; J1885; J2270; J2405; J7030